=== PATIENT | female | born 1955 | race Two or more races ===

== ENCOUNTER 2020-07-19 21:16 | Emergency (ER) | payer MEDICARE ==
[~2020-07-19] VITALS: Ht 165.1 cm; Wt 105.0 kg
[2020-07-19] MEDS ORDERED: IBUPROFEN 600MG TABLET PO ONE (21:45)
[2020-07-19] MEDS ORDERED: ONDANSETRON 4MG ODT PO ONE (21:45)
[2020-07-19 23:32] LABS: HEMATOCRIT. 42.1 % (36.0-48.0); HEMOGLOBIN. 14.7 g/dL (12.0-16.0); MEAN CORPUSCULAR HEMOGLOBIN 31.1 pg (28.0-32.0); MEAN PLATELET VOLUME 7.3 fl (7.4-10.4); PLATELET 221 x1000/uL (130-400); RED BLOOD CELL COUNT 4.73 mill/uL (4.2-5.4); RED CELL DISTRIBUTION WIDTH 14.1 % (11.6-14.6)
[2020-07-19 23:36] LABS: CHLORIDE 104 mEq/L (98-107)
[2020-07-20] VITALS: BP 130/82
[2020-07-20 02:38] LABS: PLATELET ESTIMATE NORMAL
== END 2020-07-20 00:30 | disposition home or self-care (01) ==
LOC: ER 21:16
DX: U07.1 COVID-19 (principal); J12.82 Pneumonia due to coronavirus disease 2019; R03.0 Elevated blood-pressure reading, without diagnosis of hypertension
CPT/HCPCS: 36415; 71045; 80048; 84484; 85025; 93005; 99285; Q0162

== ENCOUNTER 2020-07-21 18:37 | Inpatient (IN) | payer MEDICARE ==
[~2020-07-21] VITALS: Ht 162.6 cm; Wt 81.6 kg
[2020-07-21] MEDS ORDERED: AZITHROMYCIN 500 MG in DEXT 5% WATER 250 ML IV ONE (19:15)
[2020-07-21] MEDS ORDERED: CEFTRIAXONE 1 G PREMIX 50 ML IV ONE (19:15)
[2020-07-21] MEDS ORDERED: ACETAMINOPHEN 325MG TABLET PO ONE (19:15)
[2020-07-21] MEDS ORDERED: ASPIRIN 81MG TABLET PO ONE (19:15)
[2020-07-21] MEDS ORDERED: DEXAMETHASONE 10 MG/ML VIAL IV ONE (19:15)
[2020-07-21] MEDS ORDERED: NITROGLYCERIN 0.4MG TABLET SL SL PRN (19:15)
[2020-07-21 19:31] LABS: HEMATOCRIT. 41.1 % (36.0-48.0); HEMOGLOBIN. 14.5 g/dL (12.0-16.0); MEAN CORPUSCULAR HEMOGLOBIN 31.3 pg (28.0-32.0); PLATELET 248 x1000/uL (130-400); RED BLOOD CELL COUNT 4.62 mill/uL (4.2-5.4); RED CELL DISTRIBUTION WIDTH 14.1 % (11.6-14.6)
[2020-07-21 19:33] LABS: CHLORIDE 101 mEq/L (98-107)
[2020-07-21 19:36] LABS: D-DIMER 3.54 mg/L FEU (<0.50); PARTIAL THROMBOPLASTIN TIME 29.9 sec (23.4-31.0); PROTHROMBIN TIME 10.9 sec (9.6-11.0)
[2020-07-21 19:52] LABS: PLATELET ESTIMATE NORMAL
[2020-07-21] MEDS ORDERED: POTASSIUM CHLORIDE 20MEQ TABLET SR PO ONE ×2 (20:15→20:30)
[2020-07-21] MEDS ORDERED: ENOXAPARIN 80MG/0.8ML SYR SUBCUT ONE (20:15)
[2020-07-21] MEDS ORDERED: DOCUSATE SODIUM 100MG CAPSULE PO PRN (22:30)
[2020-07-21] MEDS ORDERED: MORPHINE SULFATE 2 MG/ML CPJ (NOT FOR IM USE) IV PRN (22:30)
[2020-07-21] MEDS ORDERED: CLONIDINE 0.1MG TABLET PO PRN (22:30)
[2020-07-21] MEDS ORDERED: ACETAMINOPHEN 325MG TABLET PO PRN (22:30)
[2020-07-21] MEDS ORDERED: DIPHENHYDRAMINE 50MG/ML VIAL IV PRN (22:30)
[2020-07-21] MEDS ORDERED: ENOXAPARIN 40MG/0.4ML SYR SUBCUT SCH (22:30)
[2020-07-21] MEDS ORDERED: ALBUTEROL 6.7GM HFA INHALER ORI PRN (22:30)
[2020-07-21] MEDS ORDERED: GUAIFENESIN 200MG/10ML SUGAR FREE UDC PO PRN (22:30)
[2020-07-21] MEDS ORDERED: MAGNESIUM/ALUMINUM HYDROXIDE/SIMETHICONE 30ML UDC PO PRN (22:30)
[2020-07-21] MEDS ORDERED: LORAZEPAM 2MG/ML CPJ IV PRN (22:30)
[2020-07-22] MEDS ORDERED: IOHEXOL-350 100 ML BOTTLE ONE (05:37)
[2020-07-22] MEDS: SODIUM CHLORIDE 0.9% INJ 3ML FLUSH IVF SCH ×3 (05:53→22:54)
[2020-07-22] MEDS: DEXAMETHASONE 10 MG/ML VIAL IV SCH (08:58)
[2020-07-22] MEDS ORDERED: ENOXAPARIN 80MG/0.8ML SYR SUBCUT SCH (09:00)
[2020-07-22 10:45] VITALS: BP 144/69
[2020-07-22] MEDS ORDERED: DIXL10 PO (12:02)
[2020-07-22 13:57] LABS: HEMATOCRIT. 45.6 % (36.0-48.0); HEMOGLOBIN. 15.1 g/dL (12.0-16.0); MEAN CORPUSCULAR HEMOGLOBIN 30.5 pg (28.0-32.0); MEAN CORPUSCULAR VOLUME 92.3 fL (81.0-99.0); MEAN PLATELET VOLUME 7.7 fl (7.4-10.4); PLATELET 311 x1000/uL (130-400); RED BLOOD CELL COUNT 4.94 mill/uL (4.2-5.4); RED CELL DISTRIBUTION WIDTH 14.7 % (11.6-14.6)
[2020-07-22] MEDS: OXYBUTYNIN CHLORIDE 5MG TABLET PO SCH (14:16)
[2020-07-22 14:31] LABS: CHLORIDE 103 mEq/L (98-107)
[2020-07-22] MEDS: HYDROCODONE/ACETAMINOPHEN 5/325MG TABLET PO PRN ×2 (14:33→20:33)
[2020-07-22 15:50] LABS: PLATELET ESTIMATE NORMAL
[2020-07-22 16:00] VITALS: BP 128/69
[2020-07-22 20:00] VITALS: BP 113/55
[2020-07-22] MEDS: ONDANSETRON HCL 4MG/2ML INJ IV PRN (20:30)
[2020-07-22] MEDS ORDERED: AZITHROMYCIN 500 MG in DEXT 5% WATER 250 ML IV SCH (21:00)
[2020-07-22] MEDS ORDERED: CEFTRIAXONE 1 G PREMIX 50 ML IV SCH (21:00)
[2020-07-22] MEDS ORDERED: CEFTRIAXONE 1,000 MG in DEXTROSE 5% WATER 50 ML IV SCH (23:00)
[2020-07-23] VITALS: BP 110/60
[2020-07-23 04:00] VITALS: BP 135/70
[2020-07-23] MEDS: SODIUM CHLORIDE 0.9% INJ 3ML FLUSH IVF SCH ×2 (05:10→15:05)
[2020-07-23 08:00] VITALS: BP 132/64
[2020-07-23] MEDS ORDERED: ENOXAPARIN 40MG/0.4ML SYR SUBCUT SCH (09:00)
[2020-07-23] MEDS: OXYBUTYNIN CHLORIDE 5MG TABLET PO SCH (09:54)
[2020-07-23 12:00] VITALS: BP 140/62
[2020-07-23] MEDS: ONDANSETRON HCL 4MG/2ML INJ IV PRN (12:45)
[2020-07-23] MEDS: DEXAMETHASONE 10 MG/ML VIAL IV SCH (12:46)
[2020-07-23 16:00] VITALS: BP 149/70
[2020-07-23 17:12] VITALS: BP 149/70
== END 2020-07-23 18:57 | disposition short-term general hospital (02) | DRG 871 ==
LOC: ER 18:37 → 7WST 21:40 → ENRESERV 07-22 09:28
PROVIDERS: ADMIT Internal Medicine; ATTEND Internal Medicine
DX: A41.89 Other specified sepsis (principal); U07.1 COVID-19; J96.00 Acute respiratory failure, unspecified whether with hypoxia or hypercapnia; J12.82 Pneumonia due to coronavirus disease 2019; E87.6 Hypokalemia; F17.200 Nicotine dependence, unspecified, uncomplicated; I10 Essential (primary) hypertension; Z96.659 Presence of unspecified artificial knee joint; R74.01 Elevation of levels of liver transaminase levels; R07.9 Chest pain, unspecified; Z90.710 Acquired absence of both cervix and uterus; Z79.899 Other long term (current) drug therapy
CPT/HCPCS: 36415; 71045; 71275; 80053; 82728; 83605; 83880; 84145; 84484; 85025; 85379; 86140; 93005; 99285; C9803; J0456; J0696; J1100; J1650; J2405; J7060; Q9967; U0003

== ENCOUNTER 2022-02-02 15:19 | Emergency (ER) | payer MEDICARE, OTHER ==
[~2022-02-02] VITALS: Ht 162.6 cm; Wt 111.0 kg
[~2022-02-02 15:19] MED LIST: DIXL10 PO
[2022-02-02 15:31] VITALS: BP 177/89
[2022-02-02] MEDS ORDERED: MECLIZINE 25MG TABLET PO ONE (17:30)
[2022-02-02 17:49] LABS: CLARITY URINE CLEAR (CLEAR); COLOR URINE YELLOW (YELLOW); KETONES URINE NEGATIVE (NEGATIVE); LEUKOCYTE ESTERASE URINE 2+ (NEGATIVE); NITRITE URINE NEGATIVE (NEGATIVE); OCCULT BLOOD URINE NEGATIVE (NEGATIVE); PROTEIN URINE NEGATIVE (NEGATIVE); SPECIFIC GRAVITY URINE 1.021 (1.005-1.030); UROBILINOGEN URINE 0.2 E.U./dL (0.2-1.0)
[2022-02-02] MEDS ORDERED: MECL-159 MT (18:59)
[2022-02-02] MEDS ORDERED: NITR-87 MT (18:59)
== END 2022-02-02 19:39 | disposition home or self-care (01) ==
LOC: ER 15:19
DX: R42 Dizziness and giddiness (principal); N39.0 Urinary tract infection, site not specified; I10 Essential (primary) hypertension
CPT/HCPCS: 81003; 82962; 93005; 99284; J8597